=== PATIENT | female | born 1955 | race African-American/Black ===

== ENCOUNTER → 2016-12-12 | Outpatient (CLI) | payer OTHER ==
--- NOTE | 2016-12-12 14:23 | RADRPT ---
EXAM DATE/TIME: 12/12/2016 13:51 [facility] COMPARISON: No previous studies available for comparison. INDICATIONS : Evaluate left shoulder for arthritis MEDICAL HISTORY : Arthritis. SURGICAL HISTORY : None. ENCOUNTER: Initial ACUITY: >1 year PAIN SCORE: 4/10 LOCATION: Left Shoulder FINDINGS: Multiple view examination of the left shoulder demonstrates no evidence of fracture or dislocation. Very large as that arising from the inferior humeral head. Osteoarthritis of the glenohumeral joint The acromioclavicular joints are maintained. There is normal range of motion between internal and ex ternal rotation. Bony mineralization is normal. CONCLUSION: Osteoarthritis of the glenohumeral joint with very prominent osteophyte from the inferior humeral hea d Otis Gould MD on December 12, 2016 at 14:21 Board Certified Radiologist. This report was verified electronically.
--- NOTE | 2016-12-12 14:32 | RADRPT ---
EXAM DATE/TIME: 12/12/2016 14:01 [facility] COMPARISON: No previous studies available for comparison. INDICATIONS : Evaluate left foot for arthritis MEDICAL HISTORY : Arthritis. SURGICAL HISTORY : None. ENCOUNTER: Initial ACUITY: >1 year PAIN SCORE: 0/10 LOCATION: Left Foot FINDINGS: Three view examination of the left foot demonstrates no soft tissue swelling, dislocation, or fractur e. The tarsal bones appear intact. The interphalangeal and metatarsophalangeal joints are intact. The calcaneus is intact. Bony mineralization is normal. CONCLUSION: Unremarkable examination of the left foot. Otis Gould MD on December 12, 2016 at 14:30 Board Certified Radiologist. This report was verified electronically.
--- NOTE | 2016-12-12 14:37 | RADRPT ---
EXAM DATE/TIME: 12/12/2016 13:53 [facility] COMPARISON: No previous studies available for comparison. INDICATIONS : Shoulder pain. MEDICAL HISTORY : Arthritis. SURGICAL HISTORY : None. ENCOUNTER: Initial ACUITY: >1 year PAIN SCORE: 6/10 LOCATION: Right shoulder FINDINGS: Four-view right shoulder demonstrates there is severe osteoarthritis of the glenohumeral joint. Ther e is subchondral cystic change and sclerosis. Large osteophytes from the humeral head. Acromioclavi cular joint is unremarkable. Ribs are intact. CONCLUSION: End-stage osteoarthritis of the glenohumeral joint with subchondral sclerosis and sub chondral cystic change. Large osteophyte. Otis Gould MD on December 12, 2016 at 14:26 Board Certified Radiologist. This report was verified electronically.
--- NOTE | 2016-12-12 14:39 | RADRPT ---
EXAM DATE/TIME: 12/12/2016 13:56 [facility] COMPARISON: No previous studies available for comparison. INDICATIONS : Evaluate left hand for arthritis MEDICAL HISTORY : Arthritis. SURGICAL HISTORY : None. ENCOUNTER: Initial ACUITY: >1 year PAIN SCORE: 3/10 LOCATION: Left hand FINDINGS/CONCLUSION: Three-view left hand demonstrates there is marked widening of the scapholuna te articulation likely a ligamentous tear. Marked radial angulation of the fifth MCP joint. No acute fracture or erosion. Otis Gould MD on December 12, 2016 at 14:27 Board Certified Radiologist. This report was verified electronically.
--- NOTE | 2016-12-12 14:40 | RADRPT ---
EXAM DATE/TIME: 12/12/2016 13:57 [facility] COMPARISON: No previous studies available for comparison. INDICATIONS : Evaluate right hand for arthritis MEDICAL HISTORY : Arthritis. SURGICAL HISTORY : None. ENCOUNTER: Initial ACUITY: >1 year PAIN SCORE: 2/10 LOCATION: Right hand FINDINGS: Three-view right hand demonstrates marked radial angulation of the fifth MCP joint. There are no obvi ous erosions. Ulnar styloid is intact. CONCLUSION: Deformity of the fifth MCP joint. No acute fracture. Otis Gould MD on December 12, 2016 at 14:29 Board Certified Radiologist. This report was verified electronically.
--- NOTE | 2016-12-12 14:41 | RADRPT ---
EXAM DATE/TIME: 12/12/2016 13:59 [facility] COMPARISON: No previous studies available for comparison. INDICATIONS : Evaluate right foot for arthritis MEDICAL HISTORY : Arthritis. SURGICAL HISTORY : None. ENCOUNTER: Initial ACUITY: >1 year PAIN SCORE: 4/10 LOCATION: Right foot FINDINGS: Three view of the right foot demonstrates there is marked hallux valgus deformity. There is no acute fracture. There is no visible erosions. Joint spaces are unremarkable. CONCLUSION: Marked hallux valgus deformity. No acute fracture. Otis Gould MD on December 12, 2016 at 14:30 Board Certified Radiologist. This report was verified electronically.
== END ==
LOC: HRAD 12-10 11:33
PROVIDERS: ATTEND Internal Medicine Rheumatology
DX: M06.9 Rheumatoid arthritis, unspecified (principal); M75.42 Impingement syndrome of left shoulder
CPT/HCPCS: 73030; 73130; 73630